=== PATIENT | male | born 1960 | race Caucasian/White ===

== ENCOUNTER 2016-11-23 13:52 | Emergency (ER) | payer MEDICAID, OTHER ==
[~2016-11-23] VITALS: Ht 175.3 cm; Wt 75.0 kg
[2016-11-23] MEDS ORDERED: LEVETIRACETAM 500MG TABLET PO ONE (21:45)
[2016-11-23 23:09] VITALS: BP 138/91
== END 2016-11-23 23:25 | disposition home or self-care (01) ==
LOC: ER 13:54
DX: G40.909 Epilepsy, unspecified, not intractable, without status epilepticus (principal)
CPT/HCPCS: 36415; 80185; 82962; 99283; Z7610